=== PATIENT | male | born 1950 | race Caucasian/White ===

== ENCOUNTER 2016-04-18 13:42 | Emergency (ER) | payer MEDICARE, MEDICAID ==
[2016-04-18] MEDS ORDERED: SODIUM CHLORIDE 0.9% 1,000 ML ONE (15:13)
[2016-04-18] MEDS ORDERED: ASPIRIN CHEWTAB 81 MG TABLET ONE (15:13)
[2016-04-18] MEDS ORDERED: ONDANSETRON 4 MG/2ML 2 ML VIAL ONE (15:13)
[2016-04-18 15:25] LABS: ABSOLUTE NEUTROPHIL COUNT 4.1 K/mm3 (1.8-7.7); BASO % 0.2 % (0.2-1.0); HEMOGLOBIN 16.6 gm/l (14.0-18.0); IMM NEUT% 0.3 % (0-1); LYMPH # 1.2 (1.0-4.8); LYMPH % 20.1 % (15-45); MEAN CELL VOLUME 90.9 fl (80.0-94.0); MEAN CORPUSCULAR HEMOGLOBIN 32.1 pg (27.0-31.0); MEAN CORPUSCULAR HGB CONC 35.3 g/dl (33.0-37.0); MEAN PLATELET VOLUME 8.7 fl (7.4-10.4); MONO # 0.8 (0.0-0.8); MONO % 13.3 % (4-12); NEUT % 66.1 % (43-75); PLATELET COUNT 177 K/mm3 (130-400); RED CELL DISTRIBUTION WIDTH 11.6 % (11.5-14.5)
[2016-04-18 15:55] LABS: CKMB ISOENZYME 0.7 ng/ml (0.6-6.3)
[2016-04-18 16:02] LABS: TROPONIN I < 0.01 ng/ml (0.0-0.06)
[2016-04-18 16:10] LABS: PH,URINE 6.5 (5.0-8.0); SPECIFIC GRAVITY 1.015 (1.001-1.030); URINE BILIRUBIN NEGATIVE (NEGATIVE); URINE BLOOD TRACE (NEGATIVE); URINE GLUCOSE (UA) NEGATIVE (NEGATIVE); URINE LEUKOCYTE ESTERASE NEGATIVE (NEGATIVE); URINE NITRITE NEGATIVE (NEGATIVE); URINE PROTEIN TRACE (NEGATIVE); URINE UROBILINOGEN NORMAL (0-1 mg/dl)
[2016-04-18 16:13] LABS: URINE APPEARANCE CLEAR; URINE COLOR AMBER
[2016-04-18 16:32] LABS: URINE BACTERIA FEW; URINE EPITHELIAL CELLS 0 /hpf; URINE WBC 0-1 /hpf
[2016-04-18 16:36] LABS: ALB/GLOB RATIO 1.4 (>1.0); ALBUMIN 4.1 gm/dL (3.5-5.7); CALCIUM 9.1 mg/dL (8.6-10.3)
--- NOTE | 2016-04-18 17:48 | RAD ---
04/18/2016 5:44 PM CHEST - 2 VIEWS History: Shortness of breath Comparison: None Findings: Two views of the chest are obtained. The lungs are clear with out effusion or pneumothorax. The cardiomediastinal silhouette is unremarkable.. The osseous structures are intact.. IMPRESSION: No acute intrathoracic process.
== END 2016-04-18 18:33 | disposition home or self-care (01) ==
LOC: ED 13:42
DX: R06.02 Shortness of breath (principal); R63.0 Anorexia; R10.31 Right lower quadrant pain
CPT/HCPCS: 83690; 85025; 82550; 82553; 80053; 87880; 84484; 81001; 71020; 99284; 96374; 96361; 93005; 99283; A9270; J2405; J7030

== ENCOUNTER 2016-07-15 16:11 | Emergency (ER) | payer MEDICARE, MEDICAID ==
[2016-07-15 16:51] LABS: ABSOLUTE NEUTROPHIL COUNT 3.7 K/mm3 (1.8-7.7); BASO % 0.3 % (0.2-1.0); EOS % 0.5 % (0.9-2.9); HEMATOCRIT 49.6 % (32.0-52.0); HEMOGLOBIN 17.4 gm/l (14.0-18.0); IMM NEUT% 0.3 % (0-1); LYMPH # 2.1 (1.0-4.8); LYMPH % 32.7 % (15-45); MEAN CELL VOLUME 91.3 fl (80.0-94.0); MEAN CORPUSCULAR HGB CONC 35.1 g/dl (33.0-37.0); MEAN PLATELET VOLUME 8.9 fl (7.4-10.4); MONO # 0.5 (0.0-0.8); MONO % 8.3 % (4-12); NEUT % 57.9 % (43-75); PLATELET COUNT 234 K/mm3 (130-400); RED CELL DISTRIBUTION WIDTH 11.9 % (11.5-14.5)
[2016-07-15 17:13] LABS: CALCIUM 9.5 mg/dL (8.6-10.3); MAGNESIUM 2.4 mg/dL (1.9-2.7)
[2016-07-15 17:47] LABS: SPECIFIC GRAVITY 1.015 (1.001-1.030); URINE BILIRUBIN NEGATIVE (NEGATIVE); URINE BLOOD NEGATIVE (NEGATIVE); URINE GLUCOSE (UA) NEGATIVE (NEGATIVE); URINE LEUKOCYTE ESTERASE NEGATIVE (NEGATIVE); URINE NITRITE NEGATIVE (NEGATIVE); URINE PROTEIN NEGATIVE (NEGATIVE); URINE UROBILINOGEN NORMAL (0-1 mg/dl)
[2016-07-15 17:48] LABS: URINE APPEARANCE SL CLOUDY; URINE COLOR YELLOW
[2016-07-15 17:54] LABS: URINE BACTERIA RARE; URINE EPITHELIAL CELLS 0-1 /hpf; URINE RBC 0 /hpf; URINE WBC 0-1 /hpf
[2016-07-15 17:55] LABS: URINE AMORPHOUS SEDIMENT MODERATE
== END 2016-07-15 18:19 | disposition home or self-care (01) ==
LOC: ED 16:11
DX: R53.1 Weakness (principal)

== ENCOUNTER 2016-07-17 22:11 | Emergency (ER) | payer MEDICARE, MEDICAID ==
[2016-07-18 01:23] LABS: URINE BILIRUBIN NEGATIVE (NEGATIVE); URINE BLOOD NEGATIVE (NEGATIVE); URINE GLUCOSE (UA) NEGATIVE (NEGATIVE); URINE LEUKOCYTE ESTERASE NEGATIVE (NEGATIVE); URINE NITRITE NEGATIVE (NEGATIVE); URINE PROTEIN NEGATIVE (NEGATIVE); URINE UROBILINOGEN NORMAL (0-1 mg/dl)
[2016-07-18 01:33] LABS: URINE APPEARANCE CLEAR; URINE COLOR YELLOW
--- NOTE | 2016-07-18 06:40 | RAD ---
CHEST - 2 VIEWS COMPARISON: None. HISTORY: Weakness and malaise FINDINGS: Views: Frontal and lateral chest Lungs: Normal Heart and vessels: Normal Trachea and bronchi: Normal Mediastinum and nicole: Normal Costophrenic sulci: Normal Chest wall and bones: Normal. Upper abdomen: Normal. IMPRESSION: Negative 2 view chest.
== END 2016-07-18 03:25 | disposition home or self-care (01) ==
LOC: ED 22:11
DX: R53.1 Weakness (principal); R53.83 Other fatigue; R06.02 Shortness of breath